=== PATIENT | female | born 1965 | race Caucasian/White ===

== ENCOUNTER → 2019-04-26 15:16 | Outpatient (CLI) | payer BC, SELFPAY ==
--- NOTE | 2019-04-26 15:22 | MM_ITS ---
MM Dig screening mamm BI w/CAD ORDERING PHYSICIAN : Oscar Moran MD PATIENT AGE: 54 years GENDER: Female COMPARISON: June 2016, August 2014, May 2012 INDICATION: ITS.REASON: Routine Screening Mammogram. No hormones. No new complaints. Noncontributory family history. TECHNIQUE: Standard CC and MLO images were obtained. R2 CAD reviewed. FINDINGS: Minimal plantar elements bilaterally. Mild fatty replacement . Scattered tiny faint vague areas nodularity bilaterally again noted RIGHT BREAST: Nodule labeled A:. There is a 6 x 3.5 mm nodular density, which is more apparent at the lateral sright breast, 8-9:00 o'clock position. It is very slightly lobulated margin on the MLO view today. Recommend CC, MLO spot views. With full 90 degrees view right breast.. Subsequent Ultrasound to follow Other tiny areas of faint scattered nodularity right breast aren't appear stable and not of concern. Overall multiplicity supports benign character LEFT BREAST:No new findings at the left breast. Scattered areas of nodularity is similar to 2014. Metallic marker clip from previous stereotactic biopsy at superior medial central breast IMPRESSION: 1.... RIGHT BREAST. 6 x 3.5 mm focal area most likely benign nodular density or cyst lateral right breast- has become more apparent since prior studies. Recommend additional spot views followed by ultrasound to further evaluate-at patient's convenience 2. Other faint vague small areas of minimal nodularity scattered throughout both breast similar to previous studies and can be followed BI-RADS Category: 0 Need Additional Imaging Evaluation RECOMMENDED FOLLOW-UP: IMM - IMMEDIATE FOLLOW-UP RECOMMENDED Spot views and ultrasound right breast] patient's convenience, so as to further evaluate a most likely benign nodular density lateral right breast. (A letter has been sent to the patient regarding results of the study.)
== END ==
PROVIDERS: PCP Physician Assistant; Visit Provider Nurse Practitioner Obstetrics & Gynecology
DX: Z12.31 Encounter for screening mammogram for malignant neoplasm of breast (principal)
CPT/HCPCS: 77067

== ENCOUNTER → 2019-05-18 12:56 | Outpatient (CLI) | payer BC, SELFPAY ==
--- NOTE | 2019-05-18 12:58 | MM_ITS ---
MM Dig mamm DX unilat RT CAD Complete right breast ultrasound with axilla INDICATION: Follow-up abnormal mammogram ORDERING PHYSICIAN: Oscar Moran MD PATIENT AGE: 54 years COMPARISON: 04/26/2019, 07/07/2016 TECHNIQUE: Problem-solving views along with right breast ultrasound FINDINGS: There is a persistent oval 6 x 3 mm well-circumscribed nodule within the 8:00 region of the right breast.. Superior slightly more prominent from an older exam of 07/07/2016 but has benign features. Right breast ultrasound: There is a complex cystic nodule measuring 5 x 3 mm at 8:00 region of the right breast and may correspond to the mammographic abdomen only. There is a 3 mm cyst at 9:00. No suspicious nodules are evident. IMPRESSION: Benign-appearing right breast nodule at 8:00 may represent a complex cyst. Recommend 6 month mammographic and sonographic follow-up BI-RADS Category: 3 Probably Benign Finding Short Term Follow-up RECOMMENDED FOLLOW-UP: 6M - 6 MONTH FOLLOW-UP (A letter has been sent to the patient regarding results of the study.)
== END ==
PROVIDERS: PCP Physician Assistant; Visit Provider Nurse Practitioner Obstetrics & Gynecology
DX: R92.8 Other abnormal and inconclusive findings on diagnostic imaging of breast (principal)
CPT/HCPCS: 76641; 77065

== ENCOUNTER → 2019-12-08 17:48 | Outpatient (CLI) | payer BC, SELFPAY ==
[2019-12-08 18:14] LABS: Basophils # 0.1 K/mm3 (0-0.2); Basophils % 0.7 % (0.1-2.0); Eosinophils # 0.4 K/mm3 (0.0-0.4); Eosinophils % 3.1 % (0.1-12.0); Hematocrit 48.1 % (37.0-47.0); Hemoglobin 15.9 g/dL (12.2-16.2); Lymphocytes # 3.8 K/mm3 (0.7-4.5); Lymphocytes % 31.2 % (10-50); Mean Corpuscular Hemoglobin 30.2 pg (27.0-31.2); Mean Corpuscular Volume 91.6 fl (81-99); Mean Platelet Volume 7.8 fl (7.4-10.4); Monocytes # 0.7 K/mm3 (0.1-1.0); Monocytes % 5.6 % (1.7-9.3); Neutrophils # 7.2 K/mm3 (1.8-7.8); Neutrophils % 59.4 % (37.0-80.0); Platelet Count 383 K/mm3 (142-424); Red Blood Count 5.25 M/mm3 (4.20-5.40); Red Cell Distribution Width 12.7 % (11.5-17.5); White Blood Count 12.2 K/mm3 (4.8-10.8)
[2019-12-08 18:53] LABS: Alanine Aminotransferase 35 U/L (12-78); Albumin Level 4.3 gm/dL (3.4-5.0); Albumin/Globulin Ratio 1.5 (1.1-1.8); Alkaline Phosphatase 86 U/L (46-116); Anion Gap 15.3 mEq/L (5-15); Aspartate Amino Transferase 24 U/L (15-37); Bilirubin,Total 0.2 mg/dL (0.2-1.0); Blood Urea Nitrogen 14 mg/dL (7-18); Calcium 9.5 mg/dL (8.5-10.1); Carbon Dioxide 26 mmol/L (21.0-32.0); Chloride 106 mmol/L (98-107); Cholesterol 209 mg/dL (140-200); Creatinine,Serum 0.78 mg/dL (0.55-1.02); Estimated Glomerular Filt Rate 77 ml/min (>60); GFR (African American) 93 ML/MIN (>60); Globulin 2.8 gm/dl (1.3-3.2); Glucose 96 mg/dL (74-106); HDL Cholesterol 35 mg/dL (29-89); LDL Cholesterol 131 mg/dL (0-130); Potassium 4.3 mmoL/L (3.5-5.1); Sodium 143 mmol/L (136-145); Thyroid Stimulating Hormone 2.09 uIU/ml (0.358-3.740); Total Protein,Serum 7.1 gm/dL (6.4-8.2); Triglycerides 217 mg/dL (30-200); VLDL Cholesterol 43 mg/dL (0-40)
[2019-12-10 09:45] LABS: Vitamin D 25 Hydroxy 16.9 ng/mL (30.0-100.0)
== END ==
PROVIDERS: Visit Provider Physician Assistant
DX: Z00.00 Encounter for general adult medical examination without abnormal findings (principal); I10 Essential (primary) hypertension; D64.9 Anemia, unspecified; E55.9 Vitamin D deficiency, unspecified; R68.89 Other general symptoms and signs; Z68.30 Body mass index [BMI] 30.0-30.9, adult
CPT/HCPCS: 80053; 80061; 82652; 84436; 84443; 85025

== ENCOUNTER → 2020-10-01 09:51 | Outpatient (CLI) | payer BC, SELFPAY | PROVIDERS: PCP Physician Assistant; Visit Provider Physician Assistant | DX: Z03.818 Encounter for observation for suspected exposure to other biological agents ruled out (principal) | CPT/HCPCS: U0003 ==

== ENCOUNTER → 2021-03-04 15:43 | Outpatient (CLI) | payer BC, SELFPAY ==
--- NOTE | 2021-03-04 15:43 | MM_ITS ---
PROCEDURE: MM DIG SCREENING MAMM BI W/CAD Digital Breast Tomosynthesis Included CLINICAL INDICATION: screening but also overdue 6 month f/u There is no personal or family history of breast cancer. There has been a previous biopsy left breast for benign disease. COMPARISON: MG [facility] DIG MAMM-SCREEN ANA CRISTINA from 07/07/2016 MG [facility]BI MM Dig screening mamm BI w/CAD from 04/26/2019 MG DIG MAMM-DX UNI-RT from 05/18/2019 TECHNIQUE: Standard CC and MLO images and 3D Tomosynthesis was obtained. R2 CAD reviewed. FINDINGS: Mild scattered fibroglandular densities are seen throughout both breast on a background fatty breast parenchyma. There is a biopsy clip left breast. There is a small benign-appearing nodular density just deep to the nipple right breast stable and unchanged from mammograms dating back through 07/07/2016. There is a small benign-appearing nodular density near the biopsy left breast which may be small partially calcified oil cyst. There is no suspicious lesion and no suspicious microcalcifications. IMPRESSION: Fibrofatty parenchyma with no suspicious lesions seen BI-RAD Category: 2 Benign Finding(s) FOLLOW-UP: 1YR 1 Year Follow-up (A letter has been sent to the patient regarding results of the study.) Dictated by: Dr. Axel Agarwal MD 03/05/2021 08:50 Dr. Axel Agarwal MD in [place] 03/05/2021 08:50
== END ==
PROVIDERS: PCP Physician Assistant; Visit Provider Physician Assistant
DX: Z12.31 Encounter for screening mammogram for malignant neoplasm of breast (principal); N63.10 Unspecified lump in the right breast, unspecified quadrant
CPT/HCPCS: 77063; 77067

== ENCOUNTER → 2022-01-21 11:39 | Outpatient (CLI) | payer BC, SELFPAY | PROVIDERS: Visit Provider Physician Assistant | DX: U09.9 Post COVID-19 condition, unspecified (principal); R69 Illness, unspecified; R51.9 Headache, unspecified; J02.9 Acute pharyngitis, unspecified | CPT/HCPCS: C9803; U0003; U0005 ==

== ENCOUNTER → 2022-01-30 10:52 | Outpatient (CLI) | payer BC, SELFPAY ==
--- NOTE | 2022-01-30 10:53 | CA_ITS ---
APPROVED REPORT EXAM: Comprehensive 2D, Doppler, and color-flow Echocardiogram Senior Cytotechnologist: Angela Key RVT Ht: 5 ft 7 in Wt: 207lbs BSA: 2.05 BP: 138/82 mmHg Indications: SOA,MURMUR,MONAE,HTN,SMOKER,HX COVID 01/07 2D Dimensions LVOT 1.90 cm (M/F) 1.5-2.5 LA Volume 24.40 mL LA Volume Index 11.90 mL/m2 (M/F) 16-34 M-Mode Dimensions RVDd 3.15 cm (0.9-2.6) LA Diam 2.92 cm (1.9-4.0) LVDd 3.72 cm (3.5-5.7) Ao Diam 3.01 cm (2.0-3.7) LVDs 2.65 cm (3.5-5.7) IVSd 0.83 cm (0.6-1.1) PWd 0.83 cm (0.6-1.1) EF (Teich) 56.20% FS 28.80% EDV (Teich) 58.90 mL TAPSE 2.26 (<1.7) ESV (Teich) 25.80 mL LV Diastology E Decel Time 117.00 (160-240 msec) E/A Ratio 0.6 MED E' 10.30 (< 7 cm/sec) E'/MED E' Ratio 4.69 (>14) LAT E' 12.40 (<10 cm/sec) E/LAT E' Ratio 3.90 (>14) Mitral Valve MV E Max Koko. 48.00 (40-130 cm/s) MV A Velocity 79.00 (40-130 cm/s) E/A Ratio 0.61 MV Decel. Time 117.00 (160-240 ms) MV PHT 34.00 ms Pulmonary Valve PV Peak Velocity 90.00 (50-150 cm/s) Left Ventricle Left atrium is mildly enlarged, left ventricle is normal size, mild concentric left ventricular hypertrophy, visually estimated ejection fraction 55%, there is moderate hypokinesis involving the basal septum, inferior basal and posterolateral wall. Grade 1 diastolic dysfunction seen without tissue Doppler evidence of raise left atrial pressure. Right Ventricle Right atrium and right ventricle are mildly enlarged with normal contractility. Aortic Valve Aortic valve is minimally thickened and fibrosed, there is no aortic stenosis or aortic insufficiency. Mitral Valve Mitral valve grossly normal, there is trace mitral regurgitation. Tricuspid Valve Tricuspid grossly normal, there is trace tricuspid regurgitation, tricuspid regurgitation jet velocity is inadequate for calculation of the right ventricular systolic pressure. Pulmonic Valve Pulmonic valve is poorly visualized. Great Vessels Aortic root is normal size. Pericardium No significant pericardial effusion noted. Inferior vena cava is normal size with normal inspiratory collapse. Conclusion 1. Mild biatrial enlargement, normal left ventricular size, mild concentric left hypertrophy, visually estimated ejection fraction 55% with segmental wall motion abnormality described above, grade 1 diastolic dysfunction seen without tissue Doppler evidence of raise left atrial pressure. 2. Mildly enlarged right ventricle with normal contractility. 3. Trace mitral and tricuspid regurgitation. 4. No significant pericardial effusion 5. Inferior vena cava is normal size with normal inspiratory collapse. Electronically signed by : Liam Key MD 01/31/2022 12:51:17
== END ==
PROVIDERS: PCP Physician Assistant; Visit Provider Physician Assistant
DX: R06.00 Dyspnea, unspecified (principal)
CPT/HCPCS: 93306